=== PATIENT | male | born 1935 | race Caucasian/White ===

== ENCOUNTER → 2016-09-17 | Outpatient (CLI) | payer MEDICARE, BC ==
[~2016-09-17] MED LIST: TERA10CA42 PO
--- NOTE | 2016-09-17 18:04 | RADRPT ---
PROCEDURE: Right knee radiographs. CLINICAL INDICATION: Right knee pain. TECHNIQUE: Two views. Frontal and lateral. COMPARISON: 09/29/2014. FINDINGS: There is no fracture or dislocation. Soft tissue calcifications are present in the suprapatellar bursa and there is fluid in the suprapat ellar bursa. The articular surfaces are intact. There are mild degenerative changes with small osteophytes noted . There is no joint space narrowing. Spurs are noted arising from the superior patella. There is no lytic or blastic lesion. There is no joint effusion. IMPRESSION: 1. Soft tissue calcifications in the suprapatellar bursa. 2. Spurs arising from the superior patella. 3. Mild degenerative change. 4. Otherwise unremarkable images of the right knee. RPTAT: QQ .Lars Molina MD, MD Date Time Electronically viewed and signed by .Lars Molina MD, MD on 09/17/2016 18:03 .R/
== END | disposition home or self-care (01) ==
LOC: HKI 11:18
PROVIDERS: ATTEND Orthopaedic Surgery
DX: Z01.818 Encounter for other preprocedural examination (principal); M66.251 Spontaneous rupture of extensor tendons, right thigh; M25.561 Pain in right knee; Z96.642 Presence of left artificial hip joint; Z96.652 Presence of left artificial knee joint
CPT/HCPCS: 73560; G0463

== ENCOUNTER 2016-09-25 10:29 | Inpatient (IN) | payer MEDICARE, BC ==
[2016-09-25] VITALS (25 sets, daily range): BP systolic 102–154; BP diastolic 45–80; PULSE 73–96; RESP 8–21; Ht 188 cm; Wt 88.7 kg
[~2016-09-25] VITALS: Ht 188 cm; Wt 88.7 kg
[~2016-09-25 10:29] MED LIST changes: +CELECOXIB 400 MG PO X1 DOSE PO ONE; +LACTATED RINGER'S 1,000 ML IV SCH; +PAIN COCKTAIL - VANCOMYCIN IRR ONE; +PREGABALIN 300 MG PO X1 PO ONE; +VANCOMYCIN 1 GM/NS 250 ML X1 BEFORE INCISION IVPB ONE; +oxyCODONE (CR) 10 MG TAB [oxyCONTIN] X1 DOSE PO ONE; +traMADOL 50 MG TAB X 1 DOSE PO ONE
[2016-09-25] MEDS: traMADol 50 MG TAB PO SCH ×2 (12:00→18:16)
[2016-09-25] MEDS ORDERED: AMLO-147 PO (13:09)
[2016-09-25] MEDS ORDERED: AZIL40TA PO (13:10)
[2016-09-25] MEDS ORDERED: AMLO-145 PO (13:11)
[2016-09-25] MEDS ORDERED: SODIUM CL BACTERIOSTATIC 30 ML INJ ONE (14:37)
[2016-09-25] MEDS ORDERED: VANCOMYCIN 1 GM INJ ONE (14:37)
[2016-09-25] MEDS ORDERED: POLYMYXIN B 500000 UNIT INJ ONE (14:37)
[2016-09-25] MEDS ORDERED: BACITRACIN 50000 UNITS INJ ONE (14:47)
--- NOTE | 2016-09-25 14:50 | HPN ---
Date/Time of Note Date/Time of Note DATE: 09/25/16 TIME: 14:50 Interval H&P Admission Note Pt. seen H&P reviewed: No system changes No change from H&P on 09/16/16 by MARIBEL Wilson MD Sep 25, 2016 14:50
[2016-09-25] MEDS ORDERED: LIDOCAINE 2% (SDV) 5 ML INJ ONE (15:13)
[2016-09-25] MEDS ORDERED: FENTAnyl 50 MCG/ML VIAL ONE (15:13)
[2016-09-25] MEDS ORDERED: PROPOFOL 0 ML ONE ×4 (15:13→15:39)
[2016-09-25] MEDS ORDERED: PROPOFOL 60 ML ONE (15:39)
[2016-09-25] MEDS ORDERED: DEXAMETHASONE 4 MG/ML 1 ML INJ ONE (15:48)
[2016-09-25] MEDS ORDERED: ONDANSETRON 4 MG INJ ONE (15:48)
[2016-09-25] MEDS ORDERED: FAMOTIDINE 20 MG INJ ONE (15:48)
[2016-09-25] MEDS ORDERED: NEOSTIGMINE 3 MG/3 ML SYRINGE ONE (15:59)
[2016-09-25] MEDS ORDERED: GLYCOPYRROLATE 0.4 MG INJ ONE (15:59)
[2016-09-25] MEDS ORDERED: POLYMYXIN/BACITRACIN 1L IRRIG ONE (16:02)
[2016-09-25] MEDS ORDERED: SUCCINYLCHOLINE CHLORIDE 100 MG/5 ML SYG IV ONE (16:20)
[2016-09-25] MEDS ORDERED: ROCURONIUM 50 MG INJ ONE (16:20)
[2016-09-25] MEDS ORDERED: EPHEDrine SULFATE 50 MG/5 ML SYG ONE (16:20)
[2016-09-25] MEDS: BUPIVACAINE LIPOSOME/PF 266 MG/20 ML VIAL INFIL SCH (16:43)
[2016-09-25] MEDS ORDERED: ONDANSETRON 4 MG INJ IV PRN ×2 (17:00→17:30)
[2016-09-25] MEDS ORDERED: HYDROmorphONE (0.2 MG/ML) 10ML SYG IV PRN ×2 (17:00)
[2016-09-25] MEDS ORDERED: MEPERIDINE 25 MG INJ IV PRN (17:00)
[2016-09-25] MEDS ORDERED: FENTAnyl 50 MCG/ML VIAL IV PRN (17:00)
[2016-09-25] MEDS ORDERED: PROCHLORPERAZINE 10 MG INJ IV PRN (17:00)
[2016-09-25] MEDS ORDERED: NA PHOSPHATE/BIPHOS 133 ML ENEMA PR PRN (17:30)
[2016-09-25] MEDS ORDERED: MAGNESIUM HYDROXIDE 30ML CUP PO PRN (17:30)
[2016-09-25] MEDS ORDERED: HYDROmorphONE 1 MG/ML SYG IV PRN (17:30)
[2016-09-25] MEDS ORDERED: NACL 0.9% 3 ML SYG IV SCH (17:30)
[2016-09-25] MEDS ORDERED: DIPHENHYDRAMINE 25 MG CAP PO PRN (17:30)
[2016-09-25] MEDS ORDERED: ASPIRIN (EC) 325 MG TAB PO ONE (17:30)
[2016-09-25] MEDS ORDERED: BISACODYL 10 MG SUPP PR PRN (17:30)
[2016-09-25] MEDS ORDERED: oxyCODONE 5 MG TAB PO PRN (17:30)
--- NOTE | 2016-09-25 17:37 | PN ---
Date/Time of Note Date/Time of Note DATE: 09/25/16 TIME: 17:35 Assessment/Plan Lines/Catheters IV Catheter Type (from Nrsg): Peripheral IV Assessment/Plan Assessment/Plan Stable in PACU, s/p right open quad tendon repair -continue vancomycin x 24 hours -cipro 500mg BID for preop UTI -pain meds as needed -ASA/SCDs for DVT prophylaxis -hinged knee brace locked in full extension at all times -OOB with PT as tolerated with hinged knee brace -monitor drain -check AM labs -d/c alvarez in AM Subjective 24 Hr Interval Summary Stable in PACU. Moving all extremities. Denies any pain. Hinged knee brace in good position. Exam/Review of Systems Vital Signs Vitals Vital Signs Date Time Temp Pulse Resp B/P Pulse Ox O2 Delivery O2 Flow Rate FiO2 09/25/16 17:29 98.9 09/25/16 12:52 79 16 119/63 96 Room Air Exam Free Text/Dictation Hemovac: minimal Dressing dry Incision clean, dry, and intact without redness or drainage Thigh soft 5/5 Quadriceps, Tibialis Anterior, EHL, Gastroc, Soleus, Peroneals Normal sensation Palpable DT/PT, CR <2 sec No distal edema FELECIA FOWLER PA-C Sep 25, 2016 17:37
--- NOTE | 2016-09-25 17:43 | OPR ---
Date/Time of Note Date/Time of Note DATE: 09/25/16 TIME: 17:41 Operative Report Free Text/Dictation Dictation # [id number] Procedure Date: Sep 25, 2016 Preoperative Diagnosis Right Quadriceps Tendon Rupture Postoperative Diagnosis Same Operation Performed Right Quadriceps Tendon Rupture Repair Surgeon: MARIBEL SCHAFER MD early childhood assistant: FELECIA FOWLER PA-C Anesthesia: general, spinal Anesthesiologist: WILLIAM DUNCAN MD Tourniquet Time: 42 minutes Estimated Blood Loss: 10 - 50 ml's Specimens None Tubes/Drains Hemovac x 1 Complications: None Pt Condition Post Procedure: stable Disposition: PACU MARIBEL SCHAFER MD Sep 25, 2016 17:42
[2016-09-25 17:46] LABS: HEMATOCRIT 32.5 % (42.0-52.0); HEMOGLOBIN 11.1 g/dl (14.0-18.0)
[2016-09-25 17:56] LABS: POTASSIUM 4.2 mmol/L (3.5-5.1)
[2016-09-25 17:57] LABS: CREATININE 1.03 mg/dl (0.61-1.24)
--- NOTE | 2016-09-25 18:11 | OPR ---
DATE OF OPERATION: 09/25/2016 PREOPERATIVE DIAGNOSIS: Right quadriceps tendon rupture. POSTOPERATIVE DIAGNOSIS: Right quadriceps tendon rupture. OPERATION PERFORMED: Repair, right quadriceps tendon rupture. SURGEON: Maribel Ceballos MD RN QUALITY: FELECIA WARREN. ANESTHESIA: Spinal plus general endotracheal intubation plus periarticular injection. ANESTHESIOLOGIST: Dr. Heydi Cox. TOURNIQUET TIME: 42 minutes. ESTIMATED BLOOD LOSS: 50 mL. INTRAVENOUS FLUIDS: Two liters crystalloid. SPECIMENS: None. DRAINS: Hemovac x1. COMPLICATIONS: None. DISPOSITION: Patient tolerated the procedure well and was taken to the recovery room in stable cond ition. INDICATIONS: The patient is an 81-year-old gentleman who had a fall about 10 days ago and sustained a right distal quadriceps tendon rupture about a fingerbreadth above the superior pole of patella. I felt he would benefit from a repair of the quadriceps tendon. Upon presentation about a week ago , he had marked swelling. I felt the need to wait a week for the swelling to diminish and he now pr esents to have the repair. The risks, benefits, alternatives of the procedure were explained in det ail to the patient. I explained the risks to include but not limited to bleeding and possible need for blood transfusion, infection, pain, stiffness, neurovascular injury, possible numbness, weaknes s and/or paralysis anywhere from the knee down to the toes, re-rupture of the tendon and need for ad ditional future surgery including possible allograft supplementation, wound healing problems, blood clots, pulmonary embolism and anesthetic complications such as heart attack, stroke, GI bleed, pneum onia and/or . Ample time was allowed for the patient to ask questions, all of which were addre ssed and answered. He understood the risks involved and wished to proceed. Informed consent was si gned prior to the procedure. DESCRIPTION OF PROCEDURE: The right knee was initialed with a marking pen [facility] to identify the correct operative site. The patient was then brought to the operating room and transferred from the [facility] to the operating table where he was administered a spinal a nesthetic and then anesthetized and intubated. Torres catheter was placed. Time out was performed t o confirm the right side was the correct operative site. He was given 1 gram of vancomycin within 1 hour prior to the incision. A tourniquet was placed on right proximal thigh. The right lower extr emity was prepped and draped in usual sterile fashion. The right lower extremity was elevated and exsanguinated with the Esmarch tourniquet and the proxima l thigh tourniquet was inflated to 275 mmHg. The knee was flexed. A midline incision was made cent ered over the patella. This was carried down to subcutaneous tissue and fat with sharp dissection. A large pocket of blood was encountered upon incision over the defect. This was evacuated. Medial and lateral flaps were raised. The quadriceps tendon rupture was identified in the tendon had retr acted proximally only about 1 cm. At this point, the wound was irrigated with pulsatile lavage with antibiotic saline. The superior pole of the patella was debrided back to healthy bleeding bone wit h a curet. The quadriceps tendon was debrided of all nonviable tissue. At this point, #2 FiberWire [place] sutures were passed up and down the tendon. Three drill holes were placed in the patella pa rallel to one another. The sutures were then passed through the drill holes and tied down snugly wi th the knee in full extension such that the quadriceps tendon was in intimate contact with the super ior pole of the patella. The overlying retinaculum was repaired with interrupted #1 Vicryls in a fi [id number] fashion. This created a xtaup-dibd-vnve FiberWire repair. At this point, a Hemovac d rain was placed in the deep portion of the wound and brought out the anterolateral thigh. The soft tissues were infiltrated with a mixture of 0.5% bupivacaine, 4 mg Duramorph and 30 mg Toradol, cloni dine, vancomycin and 266 mg of liposomal bupivacaine. The knee was irrigated with antibiotic saline and pulsatile lavage and then closed in layers with 2-0 Stratafix, 3-0 Vicryl and maia on the sk in. The drain was secured with 3-0 nylon. Sponge and needle counts correct at the end of case. Th e wound was covered with silver Mepilex dressing and wrapped with sterile cast padding in a [facility]. The knee was placed in a hinged knee brace, locked in full extension. He was awakened, extu bated, and taken to the recovery room in stable condition. Dictated By: MARIBEL MELO/DC Conf#: [id number] DID#: [id number]
[2016-09-25] MEDS: PANTOPRAZOLE (EC) 40 MG TAB PO SCH (18:15)
[2016-09-25] MEDS: ACETAMINOPHEN 1000MG/100ML IV 100 ML IVPB SCH (18:16)
[2016-09-25] MEDS: CIPROFLOXACIN 500 MG TAB PO SCH (18:47)
--- NOTE | 2016-09-25 19:35 | CONS ---
DATE OF ADMISSION: 09/25/2016 DATE OF CONSULTATION: TYPE OF CONSULTATION: Medical. Thank you, Dr. Schafer, for asking me to participate in medical management of this patient. REASON FOR CONSULTATION: Hypertension, gastroesophageal reflux disease, history of bradycardia. HISTORY OF PRESENT ILLNESS: This 81-year-old man is now in the recovery room after undergoing a rig ht quadriceps tendon repair. The patient tore his right quadriceps tendon while he was in [place] vi siting. The patient stepped off an airplane and had a large step and injured his right leg, tearing the right quadriceps tendon. The patient is awake and alert. He feels well. He denies any chest pain or shortness of breath. The patient was seen preoperatively by his primary care physician, Dr. Danish Gan, and there on the chart from Dr. Conn. PAST MEDICAL HISTORY: Gastroesophageal reflux disease, hypertension, right bundle branch block, his tory of bradycardia. Benign prostatic hypertrophy, erectile dysfunction, herpes zoster. CURRENT MEDICATIONS: Includes the followin. Amlodipine 5 mg a day. 2. Edarbi 40 mg a day. He said that he took his amlodipine this morning. ALLERGIES: THE PATIENT IS ALLERGIC TO AMOXICILLIN. 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 SOCIAL HISTORY: The patient drinks alcohol socially. Former smoker, quit in 1971. PHYSICAL EXAMINATION: GENERAL: At this time reveals a well-developed man in no apparent distress. VITAL SIGNS: Pulse of 96, respirations 19, blood pressure 126/80, O2 saturation 100% on room air. HEENT: Head normocephalic. Eyes: Extraocular muscles intact. NOSE AND MOUTH: Normal. NECK: Supple. No neck vein distention. LUNGS: Clear to auscultation. HEART: Regular rhythm. No murmurs, gallops, or rubs. ABDOMEN: Soft, nontender. No masses or megaly. EXTREMITIES: No peripheral edema. IMPRESSION: This patient is doing well after undergoing a right quadriceps tendon repair. He is in the recovery room. He is awake and alert and answers questions appropriately. He denies any chest pain or shortness of breath. I will manage the patient's hypertension, gastroesophageal reflux dis ease. PLAN: 1. Resume routine medications. 2. Check labs in the morning. 3. Postop quadriceps tendon repair protocol. 4. I will follow the patient along with you. Dictated By: TORRIE WERNER MD ND/NTS Conf#: [id number] DID#: [id number] CC: MARIBEL SCHAFER MD;*EndCC*
[2016-09-25] MEDS ORDERED: TRANEXAMIC ACID 890 MG in SOD CHLORIDE 0.9% 100 ML IVPB ONE ×2 (20:30→23:30)
[2016-09-25] MEDS: AMLODIPINE 5 MG TAB PO SCH (21:00)
[2016-09-25] MEDS ORDERED: VANCOMYCIN 1 GM (PMX) 250 ML IVPB SCH (21:00)
[2016-09-25] MEDS: PREGABALIN 25 MG CAP PO SCH (22:09)
[2016-09-25] MEDS: DOCUSATE SODIUM 100 MG CAP PO SCH (22:09)
[2016-09-25] MEDS: LACTATED RINGER'S 1,000 ML IV SCH (22:11)
[2016-09-26] MEDS: ACETAMINOPHEN 1000MG/100ML IV 100 ML IVPB SCH ×3 (00:11→12:29)
[2016-09-26] MEDS: LACTATED RINGER'S 1,000 ML IV SCH ×3 (00:12→17:20)
[2016-09-26] MEDS: traMADol 50 MG TAB PO SCH ×4 (00:12→17:57)
[2016-09-26 00:32] VITALS: BP 100/55; PULSE 75; RESP 18
[2016-09-26] MEDS: VANCOMYCIN 1 GM (PMX) 250 ML IVPB SCH ×2 (02:46→15:16)
[2016-09-26 05:17] LABS: HEMATOCRIT 28.6 % (42.0-52.0); HEMOGLOBIN 9.7 g/dl (14.0-18.0)
[2016-09-26 05:21] LABS: POTASSIUM 4.7 mmol/L (3.5-5.1)
[2016-09-26 05:24] LABS: CREATININE 1.07 mg/dl (0.61-1.24)
[2016-09-26 05:25] LABS: CALCIUM 8.6 mg/dl (8.4-10.2)
[2016-09-26] MEDS: CIPROFLOXACIN 500 MG TAB PO SCH ×2 (05:37→17:57)
[2016-09-26] MEDS: PANTOPRAZOLE (EC) 40 MG TAB PO SCH ×2 (05:37→17:57)
[2016-09-26 05:56] VITALS: BP 127/71; PULSE 75; RESP 18
[2016-09-26] MEDS: oxyCODONE 5 MG TAB PO PRN (07:15)
[2016-09-26 07:40] LABS: ADD UMIC NO; URINE BILIRUBIN (Dip) NEGATIVE (NEGATIVE); URINE BLOOD (Dip) NEGATIVE (NEGATIVE); URINE COLOR LT. YELLOW (YELLOW); URINE GLUCOSE (Dip) NEGATIVE (NEGATIVE); URINE KETONES (Dip) NEGATIVE (NEGATIVE); URINE LEUKOCYTE ESTERASE (Dip) NEGATIVE (NEGATIVE); URINE NITRITE (Dip) NEGATIVE (NEGATIVE); URINE TOTAL PROTEIN (Dip) NEGATIVE (NEGATIVE); URINE UROBILINOGEN (Dip) 0.2 E.U./dL (0.1-1.0)
[2016-09-26 07:43] VITALS: BP 114/58; RESP 18
[2016-09-26] MEDS: PREGABALIN 25 MG CAP PO SCH ×2 (09:12→20:55)
[2016-09-26] MEDS: ASPIRIN (EC) 325 MG TAB PO SCH ×2 (09:12→20:54)
[2016-09-26] MEDS: DOCUSATE SODIUM 100 MG CAP PO SCH ×2 (09:12→20:54)
[2016-09-26] MEDS: LOSARTAN 50 MG TAB PO SCH (09:15)
[2016-09-26] MEDS: AMLODIPINE 5 MG TAB PO SCH ×2 (09:16→21:00)
--- NOTE | 2016-09-26 09:25 | CONS ---
Date/Time of Note Date/Time of Note DATE: 09/26/16 TIME: 09:19 Assessment/Plan Assessment/Plan Chief Complaint/Hosp Course 1.He is 1 day post op a R quadriceps tendon repair . 2. He is feeling well . 3. continue current medication and PT . 4. he has a history of BPH and usually self catherizes himself 3 time a day . will leave Torres catheter in place today . 5. H/H is low , will check in am . Problems: Consultation Date/Type/Reason Admit Date/Time Sep 25, 2016 at 11:59 Initial Consult Date Type of Consultation: medicine 24 HR Interval Summary Free Text/Dictation He is now 1 day post op a R quadriceps tendon repair . Constitutional: improved, no complaints Exam/Review of Systems Vital Signs Vitals Vital Signs Date Time Temp Pulse Resp B/P Pulse Ox O2 Delivery O2 Flow Rate FiO2 09/26/16 07:43 97.3 66 18 114/58 98 09/26/16 05:56 Room Air Intake and Output 09/25/16 09/25/16 09/26/16 15:00 23:00 07:00 Intake Total 1300 ml 1500 ml Output Total 110 ml 835 ml Balance 1190 ml 665 ml Exam Constitutional: alert, oriented, well developed Psych: nl mood/affect, no complaints Respiratory: clear to auscultation, normal air movement Cardiovascular: regular rate and rhythm Gastrointestinal: soft Musculoskeletal: nl extremities to inspection Results Result Diagram: 09/26/16 0430 09/26/16 0430 Results 24 hrs Laboratory Tests Test 09/25/16 17:40 09/26/16 04:00 09/26/16 04:30 Hemoglobin 11.1 L 9.7 L Hematocrit 32.5 L 28.6 L Sodium Level 140 134 L Potassium Level 4.2 4.7 Chloride Level 105 102 Carbon Dioxide Level 26 27 Anion Gap 13 10 Blood Urea Nitrogen 23 H 24 H Creatinine 1.03 1.07 Glucose Level 116 121 Calcium Level 9.0 8.6 Urine Color LT. YELLOW Urine Clarity CLEAR Urine pH 5.5 Urine Specific [place] 1.025 Urine Ketones NEGATIVE Urine Nitrite NEGATIVE Urine Bilirubin NEGATIVE Urine Urobilinogen 0.2 E.U./dL Urine Leukocyte Esterase NEGATIVE Urine Hemoglobin NEGATIVE Urine Glucose NEGATIVE Urine Total Protein NEGATIVE Medications Medications Current Medications Amlodipine Besylate (Norvasc) 5 mg BID PO Last administered on 09/26/16 09:16 ; Admin Dose 5 MG; Start 09/25/16 at 21:00 Losartan Potassium 50 mg 50 mg DAILY PO Last administered on 09/26/16 09:15; Admin Dose 50 MG; Start 09/26/16 at 09:00 Lactated Ringer's 1,000 ml @ 125 mls/hr Q8H IV Last administered on 09/26/16 00:12; Admin Dose 125 MLS/HR; Start 09/25/16 at 17:20 Acetaminophen (Ofirmev 1000mg/ 100ml Iv) 100 ml @ 400 mls/hr Q6 IVPB Last administered on 09/26/16 05:36; Admin Dose 400 MLS/HR; Start 09/25/16 at 18:00 ; Stop 09/26/16 at 17:59 Tramadol HCl (Ultram) 50 mg Q6 PO Last administered on 09/26/16 05:36; Admin Dose 50 MG; Start 09/25/16 at 12:00; Stop 09/28/16 at 11:59 Oxycodone HCl (Roxicodone) 5 mg Q4H PRN PO PAIN LEVEL 1-3; Start 09/25/16 at 17 :30 Oxycodone HCl (Roxicodone) 10 mg Q4H PRN PO PAIN LEVEL 4-7 Last administered on 09/26/16 07:15; Admin Dose 10 MG; Start 09/25/16 at 17:30 Hydromorphone HCl (Dilaudid) 1 mg Q3H PRN IV PAIN LEVEL 8-10; Start 09/25/16 at 17:30 Ondansetron HCl (Zofran Inj) 4 mg Q6H PRN IV NAUSEA AND/OR VOMITING; Start at 17:30 Bisacodyl (Dulcolax Supp) 10 mg Q12H PRN [place] CONSTIPATION; Start 09/25/16 at 17: 30 Magnesium Hydroxide (Milk Of Mag) 30 ml BID PRN PO CONSTIPATION; Start at 17:30 Sodium Biphosphate/ Sodium Phosphate (Fleet Enema) 133 ml DAILY PRN [place] CONSTIPATION; Start 09/25/16 at 17:30 Docusate Sodium (Colace) 100 mg BID PO Last administered on 09/26/16 09:12; Admin Dose 100 MG; Start 09/25/16 at 21:00 Diphenhydramine HCl (Benadryl) 25 mg Q6H PRN PO PRURITUS; Start 09/25/16 at 17: 30 Aspirin (Ecotrin) 325 mg BID PO Last administered on 09/26/16 09:12; Admin Dose 325 MG; Start 09/26/16 at 09:00 Pantoprazole (Protonix Tab) 40 mg BID@06,18 PO Last administered on 09/26/16 05:37; Admin Dose 40 MG; Start 09/25/16 at 18:00 Pregabalin (Lyrica) 50 mg BID PO Last administered on 09/26/16 09:12; Admin Dose 50 MG; Start 09/25/16 at 21:00 Ciprofloxacin 500 mg 500 mg BID@06,18 PO Last administered on 09/26/16 05:37; Admin Dose 500 MG; Start 09/25/16 at 18:00 Vancomycin HCl (Vancocin) 250 ml @ 125 mls/hr Q12H IVPB Last administered on 02:46; Admin Dose 125 MLS/HR; Start 09/26/16 at 03:00; Stop 09/26/16 at 16:59 TORRIE WERNER MD Sep 26, 2016 09:25
--- NOTE | 2016-09-26 10:45 | PN ---
Date/Time of Note Date/Time of Note DATE: 09/26/16 TIME: 10:43 Assessment/Plan Lines/Catheters IV Catheter Type (from Nrsg): Peripheral IV Alvarez in Place (from Nrsg): Yes Assessment/Plan Assessment/Plan Stable POD #1, s/p right open quad tendon repair -pain meds as needed -ASA/SCDs for DVT prophylaxis -will leave alvarez catheter in place due to prostate issues -continue wearing hinged knee brace locked in extension -OOB with PT as tolerated -monitor drain -check AM labs -will plan to go home upon discharge Subjective 24 Hr Interval Summary No acute overnight events. Denies significant pain. Hinged knee brace in place. Would like to keep in alvarez until tomorrow due to prostate issues. Patient self catheterizes at home. Will plan to go home upon discharge. Exam/Review of Systems Vital Signs Vitals Vital Signs Date Time Temp Pulse Resp B/P Pulse Ox O2 Delivery O2 Flow Rate FiO2 09/26/16 07:43 97.3 66 18 114/58 98 09/26/16 05:56 Room Air Intake and Output 09/25/16 09/25/16 09/26/16 14:59 22:59 06:59 Intake Total 1300 ml 1500 ml Output Total 110 ml 835 ml Balance 1190 ml 665 ml Exam Free Text/Dictation Hemovac: 95cc Dressing dry Incision clean, dry, and intact without redness or drainage Thigh soft 5/5 Quadriceps, Tibialis Anterior, EHL, Gastroc, Soleus, Peroneals Normal sensation Palpable DT/PT, CR <2 sec No distal edema Results Result Diagram: 09/26/1642909/26/16429 FELECIA FOWLER PA-C Sep 26, 2016 10:45
--- NOTE | 2016-09-26 15:26 | PDOCDIS ---
Discharge Instructions DIAGNOSIS Discharge Diagnosis: s/p right open quad tendon repair CONDITION Patient Condition: Good HOME CARE INSTRUCTIONS: Diet Instructions: Regular ACTIVITY: Activity Restrictions: Slowly Increase Activity Rest between Activity Avoid heavy lifting Do not operate Machinery Do not operate Power Tool Avoid Heavy Housework Keep Limb Elevated Bathing Restrictions: ShowerActivity Restrictions Comment: keep knee locked in extension with hinged knee brace at all times FOLLOW UP/APPOINTMENTS Appointments follow up in the office in 1 week FELECIA FOWLER PA-C Sep 26, 2016 15:26
[2016-09-26] MEDS ORDERED: TRAM50TA2 PO (15:28)
[2016-09-26] MEDS ORDERED: HYDR-906 PO (15:28)
[2016-09-26] MEDS ORDERED: ASPI325T32 PO (15:28)
[2016-09-26] MEDS ORDERED: PANT40TA4 PO (15:28)
[2016-09-27] MEDS: traMADol 50 MG TAB PO SCH ×5 (00:12→23:33)
[2016-09-27] MEDS: oxyCODONE 5 MG TAB PO PRN ×2 (00:12→14:22)
[2016-09-27] MEDS: LACTATED RINGER'S 1,000 ML IV SCH ×3 (01:20→16:22)
[2016-09-27 05:06] LABS: HEMOGLOBIN 10.5 g/dl (14.0-18.0)
[2016-09-27 05:17] LABS: POTASSIUM 4.3 mmol/L (3.5-5.1)
[2016-09-27 05:20] LABS: CREATININE 0.9 mg/dl (0.61-1.24)
[2016-09-27 05:21] LABS: CALCIUM 8.9 mg/dl (8.4-10.2)
[2016-09-27] MEDS: PANTOPRAZOLE (EC) 40 MG TAB PO SCH ×2 (05:51→17:28)
[2016-09-27] MEDS: CIPROFLOXACIN 500 MG TAB PO SCH ×2 (05:52→17:27)
[2016-09-27 07:00] VITALS: BP 117/67; RESP 18
[2016-09-27] MEDS: PREGABALIN 25 MG CAP PO SCH ×2 (08:36→20:57)
[2016-09-27] MEDS: AMLODIPINE 5 MG TAB PO SCH ×2 (08:36→20:58)
[2016-09-27] MEDS: ASPIRIN (EC) 325 MG TAB PO SCH ×2 (08:36→20:57)
[2016-09-27] MEDS: DOCUSATE SODIUM 100 MG CAP PO SCH ×2 (08:36→20:57)
[2016-09-27] MEDS: LOSARTAN 50 MG TAB PO SCH (08:37)
--- NOTE | 2016-09-27 10:32 | PN ---
Date/Time of Note Date/Time of Note DATE: 09/27/16 TIME: 10:31 Assessment/Plan Lines/Catheters IV Catheter Type (from Nrsg): Saline Lock Alvarez in Place (from Nrsg): Yes Assessment/Plan Assessment/Plan POD # 2. Stable. -Drain removed -OOB with PT -Hinged brace locked in full extension at all times -Pain meds -ASA/SCDs -D/C alvarez today. Self cath prn. -D/C tomorrow Subjective 24 Hr Interval Summary Resting comfortably. Minimal pain. Walked with PT yesterday. Exam/Review of Systems Vital Signs Vitals Vital Signs Date Time Temp Pulse Resp B/P Pulse Ox O2 Delivery O2 Flow Rate FiO2 09/27/16 07:00 97.8 58 18 117/67 95 09/26/16 05:56 Room Air Intake and Output 09/26/16 09/26/16 09/27/16 15:00 23:00 07:00 Intake Total 3180 ml 150 ml Output Total 5000 ml 3020 ml Balance -1820 ml -2870 ml Exam Free Text/Dictation Hemovac: 20 cc Dressing dry Incision clean, dry, and intact without redness or drainage 5/5 Tibialis Anterior, EHL, Gastroc Soleus, Peroneals Normal sensation Palpable DP/PT, CR < 2 Sec No distal edema Results Result Diagram: 09/27/16 0423 09/27/16 0423 MARIBEL SCHAFER MD Sep 27, 2016 10:32
--- NOTE | 2016-09-27 11:21 | CONS ---
Date/Time of Note Date/Time of Note DATE: 09/27/16 TIME: :17 Consult Date/Type/Reason Admit Date/Time Sep 25, 2016 at 11:59 Initial Consult Date 09/25/2016 Type of Consultation: medicine Reason for Consultation HTN, UTI, BPH Ordering Provider: MARIBEL SCHAFER MD Subjective Patient doing well this am other than feeling constipated. Denies fevers, chills , nausea, vomiting, diarrhea. Pain adequately controlled. Alvarez out, patient self catheterizing. Objective Vital Signs Date Time Temp Pulse Resp B/P Pulse Ox O2 Delivery O2 Flow Rate FiO2 09/27/16 07:00 97.8 58 18 117/67 95 09/26/16 05:56 Room Air Intake and Output 09/26/16 09/26/16 09/27/16 15:00 23:00 07:00 Intake Total 3180 ml 150 ml Output Total 5000 ml 3020 ml Balance -1820 ml -2870 ml Exam GEN-NAD HEENT-MMM, no scleral icterus CV-rrr, nml s1/s2, no m/r/g Pulm-CTAB, no w/r/r Abd-soft, nt, nd Ext-no c/c/e Results/Medications Result Diagram: 09/27/16 0423 09/27/16 0423 Results 24 hrs Laboratory Tests Test 09/27/16 04:23 Hemoglobin 10.5 L Hematocrit 32.0 L Sodium Level 138 Potassium Level 4.3 Chloride Level 106 Carbon Dioxide Level 28 Anion Gap 8 Blood Urea Nitrogen 18 Creatinine 0.90 Glucose Level 94 Calcium Level 8.9 Medications Current Medications Amlodipine Besylate (Norvasc) 5 mg BID PO Last administered on 09/27/16 08:36 ; Admin Dose 5 MG; Start 09/25/16 at 21:00 Losartan Potassium 50 mg 50 mg DAILY PO Last administered on 09/27/16 08:37; Admin Dose 50 MG; Start 09/26/16 at 09:00 Lactated Ringer's (Lr) 1,000 ml @ 125 mls/hr Q8H IV Last administered on 00:12; Admin Dose 125 MLS/HR; Start 09/25/16 at 17:20 Tramadol HCl (Ultram) 50 mg Q6 PO Last administered on 09/27/16 05:52; Admin Dose 50 MG; Start 09/25/16 at 12:00; Stop 09/28/16 at 11:59 Oxycodone HCl (Roxicodone) 5 mg Q4H PRN PO PAIN LEVEL 1-3 Last administered on 09/26/16 19:13; Admin Dose 5 MG; Start 09/25/16 at 17:30 Oxycodone HCl (Roxicodone) 10 mg Q4H PRN PO PAIN LEVEL 4-7 Last administered on 09/27/16 00:12; Admin Dose 10 MG; Start 09/25/16 at 17:30 Hydromorphone HCl (Dilaudid) 1 mg Q3H PRN IV PAIN LEVEL 8-10 Last administered on 09/27/16 02:03; Admin Dose 1 MG; Start 09/25/16 at 17:30 Ondansetron HCl (Zofran Inj) 4 mg Q6H PRN IV NAUSEA AND/OR VOMITING; Start at 17:30 Bisacodyl (Dulcolax Supp) 10 mg Q12H PRN [place] CONSTIPATION; Start 09/25/16 at 17: 30 Magnesium Hydroxide (Milk Of Mag) 30 ml BID PRN PO CONSTIPATION Last administered on 09/27/16 10:38; Admin Dose 30 ML; Start 09/25/16 at 17:30 Sodium Biphosphate/ Sodium Phosphate (Fleet Enema) 133 ml DAILY PRN [place] CONSTIPATION; Start 09/25/16 at 17:30 Docusate Sodium (Colace) 100 mg BID PO Last administered on 09/27/16 08:36; Admin Dose 100 MG; Start 09/25/16 at 21:00 Diphenhydramine HCl (Benadryl) 25 mg Q6H PRN PO PRURITUS; Start 09/25/16 at 17: 30 Aspirin (Ecotrin) 325 mg BID PO Last administered on 09/27/16 08:36; Admin Dose 325 MG; Start 09/26/16 at 09:00 Pantoprazole (Protonix Tab) 40 mg BID@06,18 PO Last administered on 09/27/16 05:51; Admin Dose 40 MG; Start 09/25/16 at 18:00 Pregabalin (Lyrica) 50 mg BID PO Last administered on 09/27/16 08:36; Admin Dose 50 MG; Start 09/25/16 at 21:00 Ciprofloxacin (Cipro) 500 mg BID@,18 PO Last administered on 09/27/16t 05:52 ; Admin Dose 500 MG; Start 09/25/16 at 18:00 Assessment/Plan Chief Complaint/Hosp Course 81 y/o female pmh HTN, 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 Problems: Additional Assessment/Plan Ortho #s/p R quad tendon repair -ASA/SCD for DVT ppx -pain management -PT CV #HTN- -norvasc -losartan ID #UTI -continue ciprofloxacin until 09/28 #BPH -alvarez discontinued -q6 catheterization Dispo-drain removed today. Medically cleared for discharge tomorrow. SHREE SUNSHINE MD Sep 27, 2016 11:21
[2016-09-27 18:00] VITALS: BP 131/89; RESP 20
[2016-09-27 19:55] VITALS: BP 130/82; PULSE 74; RESP 18
[2016-09-28] MEDS: LACTATED RINGER'S 1,000 ML IV SCH ×2 (00:09→09:20)
[2016-09-28 05:13] LABS: POTASSIUM 4.2 mmol/L (3.5-5.1)
[2016-09-28 05:15] LABS: CREATININE 0.89 mg/dl (0.61-1.24); HEMATOCRIT 35.3 % (42.0-52.0); HEMOGLOBIN 11.6 g/dl (14.0-18.0)
[2016-09-28 05:16] LABS: CALCIUM 9.2 mg/dl (8.4-10.2)
[2016-09-28] MEDS: CIPROFLOXACIN 500 MG TAB PO SCH (06:27)
[2016-09-28] MEDS: PANTOPRAZOLE (EC) 40 MG TAB PO SCH (06:27)
[2016-09-28] MEDS: traMADol 50 MG TAB PO SCH (06:27)
[2016-09-28 08:26] VITALS: BP 130/65; RESP 18
[2016-09-28] MEDS: DOCUSATE SODIUM 100 MG CAP PO SCH (08:48)
[2016-09-28] MEDS: PREGABALIN 25 MG CAP PO SCH (08:49)
[2016-09-28] MEDS: ASPIRIN (EC) 325 MG TAB PO SCH (08:49)
[2016-09-28] MEDS: AMLODIPINE 5 MG TAB PO SCH (08:50)
[2016-09-28] MEDS: LOSARTAN 50 MG TAB PO SCH (08:51)
[2016-09-28] MEDS ORDERED: POLYETHYLENE GLYCOL 17 GM PACKET PO ONE (10:00)
--- NOTE | 2016-09-28 10:06 | CONS ---
Date/Time of Note Date/Time of Note DATE: 09/28/16 TIME: 10:02 Consult Date/Type/Reason Admit Date/Time Sep 25, 2016 at 11:59 Initial Consult Date 09/25/2016 Type of Consultation: medicine Reason for Consultation HTN, BPH, UTI Ordering Provider: MARIBEL SCHAFER MD Subjective Patient doing well today. Has not yet had BM. Denies fevers, chills, nausea, vomiting, diarrhea, chest pain, sob, cough, abdominal pain. Objective Vital Signs Date Time Temp Pulse Resp B/P Pulse Ox O2 Delivery O2 Flow Rate FiO2 09/28/16 08:26 97.8 62 18 130/65 97 09/27/16 19:55 Room Air Intake and Output 09/27/16 09/27/16 09/28/16 15:00 23:00 07:00 Intake Total 720 ml 1200 ml Output Total 2000 ml 1000 ml Balance -1280 ml 200 ml Exam Gen-NAD, A&O x4 HEENT-no scleral icterus, mmm CV-rrr, nml s1/s2, no m/r/g Abd-soft, nt, nd, +BS ext-no c/c/e Results/Medications Result Diagram: 09/28/1642609/28/167 Results 24 hrs Laboratory Tests Test 09/28/16 04:27 Hemoglobin 11.6 L Hematocrit 35.3 L Sodium Level 137 Potassium Level 4.2 Chloride Level 101 Carbon Dioxide Level 29 Anion Gap 11 Blood Urea Nitrogen 21 H Creatinine 0.89 Glucose Level 95 Calcium Level 9.2 Medications Current Medications Amlodipine Besylate (Norvasc) 5 mg BID PO Last administered on 09/28/16 08:50 ; Admin Dose 5 MG; Start 09/25/16 at 21:00 Losartan Potassium 50 mg 50 mg DAILY PO Last administered on 09/28/16 08:51; Admin Dose 50 MG; Start 09/26/16 at 09:00 Lactated Ringer's (Lr) 1,000 ml @ 125 mls/hr Q8H IV Last administered on 00:12; Admin Dose 125 MLS/HR; Start 09/25/16 at 17:20 Tramadol HCl (Ultram) 50 mg Q6 PO Last administered on 09/28/16 06:27; Admin Dose 50 MG; Start 09/25/16 at 12:00; Stop 09/28/16 at 11:59 Oxycodone HCl (Roxicodone) 5 mg Q4H PRN PO PAIN LEVEL 1-3 Last administered on 09/26/16 19:13; Admin Dose 5 MG; Start 09/25/16 at 17:30 Oxycodone HCl (Roxicodone) 10 mg Q4H PRN PO PAIN LEVEL 4-7 Last administered on 09/27/16 14:22; Admin Dose 10 MG; Start 09/25/16 at 17:30 Hydromorphone HCl (Dilaudid) 1 mg Q3H PRN IV PAIN LEVEL 8-10 Last administered on 09/27/16 02:03; Admin Dose 1 MG; Start 09/25/16 at 17:30 Ondansetron HCl (Zofran Inj) 4 mg Q6H PRN IV NAUSEA AND/OR VOMITING; Start at 17:30 Bisacodyl (Dulcolax Supp) 10 mg Q12H PRN [place] CONSTIPATION; Start 09/25/16 at 17: 30 Magnesium Hydroxide (Milk Of Mag) 30 ml BID PRN PO CONSTIPATION Last administered on 09/27/16 10:38; Admin Dose 30 ML; Start 09/25/16 at 17:30 Sodium Biphosphate/ Sodium Phosphate (Fleet Enema) 133 ml DAILY PRN [place] CONSTIPATION; Start 09/25/16 at 17:30 Docusate Sodium (Colace) 100 mg BID PO Last administered on 09/28/16 08:48; Admin Dose 100 MG; Start 09/25/16 at 21:00 Diphenhydramine HCl (Benadryl) 25 mg Q6H PRN PO PRURITUS; Start 09/25/16 at 17: 30 Aspirin (Ecotrin) 325 mg BID PO Last administered on 09/28/16 08:49; Admin Dose 325 MG; Start 09/26/16 at 09:00 Pantoprazole (Protonix Tab) 40 mg BID@06,18 PO Last administered on 09/28/16 06:27; Admin Dose 40 MG; Start 09/25/16 at 18:00 Pregabalin (Lyrica) 50 mg BID PO Last administered on 09/28/16 08:49; Admin Dose 50 MG; Start 09/25/16 at 21:00 Ciprofloxacin (Cipro) 500 mg BID@06,18 PO Last administered on 09/28/16t 06:27 ; Admin Dose 500 MG; Start 09/25/16 at 18:00 Assessment/Plan Chief Complaint/Hosp Course 81 y/o female pmh HTN, 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 Problems: Additional Assessment/Plan Ortho #s/p R quad tendon repair -ASA/SCD for DVT ppx -pain management -PT GI #constipation-likely 2/2 immobility and pain meds -minimize pain meds -will dose miralax today as well. -counseled patient extensively on bowel regimen on discharge CV #HTN-well controlled -norvasc -losartan ID #UTI -continue ciprofloxacin today, then dc #BPH -alvarez discontinued -q6 catheterization Dispo-Medically cleared for discharge today. SHREE SUNSHINE MD Sep 28, 2016 10:06
--- NOTE | 2016-09-28 10:29 | PN ---
Date/Time of Note Date/Time of Note DATE: 09/28/16 TIME: 10:27 Assessment/Plan Lines/Catheters IV Catheter Type (from Nrsg): Saline Lock Torres in Place (from Nrsg): Yes Assessment/Plan Assessment/Plan POD # 3. Stable. -D/C to home -Pain meds -Hinged brace locked in full extension at all times -No knee ROM -WBAT right LE with brace on -ASA 325 mg po bid x 4 weeks -F/u with me in 1 week Subjective 24 Hr Interval Summary Comfortable. Ready to go home today. Exam/Review of Systems Vital Signs Vitals Vital Signs Date Time Temp Pulse Resp B/P Pulse Ox O2 Delivery O2 Flow Rate FiO2 09/28/16 08:26 97.8 62 18 130/65 97 09/27/16 19:55 Room Air Intake and Output 09/27/16 09/27/16 09/28/16 15:00 23:00 07:00 Intake Total 720 ml 1200 ml Output Total 2000 ml 1000 ml Balance -1280 ml 200 ml Exam Free Text/Dictation Dressing dry Incision clean, dry, and intact without redness or drainage 5/5 Tibialis Anterior, EHL, Gastroc Soleus, Peroneals Normal sensation Palpable DP/PT, CR < 2 Sec No distal edema Results Result Diagram: 09/28/167 09/28/16426 MARIBEL SCHAFER MD Sep 28, 2016 10:28
--- NOTE | 2016-09-28 18:03 | DS ---
DATE OF ADMISSION: 09/25/2016 DATE OF DISCHARGE: 09/28/2016 ADMITTING DIAGNOSIS: Right knee quadriceps tendon rupture. DISCHARGE DIAGNOSIS: Status post right knee quadriceps tendon rupture repair. HOSPITAL COURSE: The patient was admitted and taken to the operating room where he underwent a righ t knee quadriceps tendon rupture repair. There were no complications. He tolerated the procedure w ell. He was taken to the recovery room in stable condition. He was given routine perioperative int ravenous antibiotics. His pain was controlled with oral pain medications. He had been placed in a hinged knee brace locked in full extension to protect the repair. He was seen by physical therapy a nd educated on gait training and use of a front-wheel walker with the brace locked in full extension . The drain was removed on postoperative day 2 and the incision inspected and noted to be clean, dr y, and intact with no redness or drainage. He remained afebrile, hemodynamically stable, and neurov ascularly intact. By postoperative day 3, he was doing well and ready to be discharged to home. DISCHARGE CONDITION: Good. DISPOSITION: Home. DISCHARGE MEDICATIONS: 1. He will continue with [place] 1 to 2 tabs p.o. q.4 to 6h.p.r.n. pain. 2. Tramadol 1 to 2 tabs p.o. q.4 to 6h. p.r.n. mild pain. 3. He will take enteric-coated aspirin 325 mg twice daily for DVT prophylaxis. 4. For the remainder of the medications, please refer to the medication reconciliation form. DISCHARGE INSTRUCTIONS: He should keep the hinged brace locked in full extension on the knee at all times. There is to be no bending of the knee. He may be weightbearing as tolerated on the right l ower extremity with a walker, so long as he has the hinged knee brace on locked in full extension. The incision should be kept dry. FOLLOWUP: He will follow up with me in the office in 1 week. Dictated By: MARIBEL MELO/DC Conf#: [id number] DID#: [id number]
== END 2016-09-28 13:10 | disposition home or self-care (01) | DRG 501 ==
LOC: REC 11:59 → MS1 21:26
PROVIDERS: ADMIT Orthopaedic Surgery; ATTEND Orthopaedic Surgery
PROC: 0LML0ZZ Reattachment of Right Upper Leg Tendon, Open Approach (ICD-10-PCS; principal; 2016-09-25 14:30)
DX: M66.251 Spontaneous rupture of extensor tendons, right thigh (principal); N39.0 Urinary tract infection, site not specified; I10 Essential (primary) hypertension; K21.9 Gastro-esophageal reflux disease without esophagitis; S83.92XA Sprain of unspecified site of left knee, initial encounter; X50.9XXA Other and unspecified overexertion or strenuous movements or postures, initial encounter; Y92.813 Airplane as the place of occurrence of the external cause; Z96.642 Presence of left artificial hip joint; Z96.652 Presence of left artificial knee joint; N40.0 Benign prostatic hyperplasia without lower urinary tract symptoms; K59.00 Constipation, unspecified
CPT/HCPCS: 80048; 81003; 85014; 85018; 87081; 87086; 97116; 97162; 97530; C9290; J0131; J0171; J0330; J0735; J1100; J1170; J1885; J2274; J2405; J2710; J3010; J3370; J7120

== ENCOUNTER → 2016-10-03 | Outpatient (CLI) | payer MEDICARE, BC ==
[~2016-10-03] MED LIST changes: +AMLO-145 PO; +ASPI325T32 PO; +AZIL40TA PO; -CELECOXIB 400 MG PO X1 DOSE PO ONE; +HYDR-906 PO; -LACTATED RINGER'S 1,000 ML IV SCH; -PAIN COCKTAIL - VANCOMYCIN IRR ONE; +PANT40TA4 PO; -PREGABALIN 300 MG PO X1 PO ONE; -TERA10CA42 PO; +TRAM50TA2 PO; -VANCOMYCIN 1 GM/NS 250 ML X1 BEFORE INCISION IVPB ONE; -oxyCODONE (CR) 10 MG TAB [oxyCONTIN] X1 DOSE PO ONE; -traMADOL 50 MG TAB X 1 DOSE PO ONE
--- NOTE | 2016-10-03 16:31 | HKNOTE ---
DATE OF SERVICE: 10/03/2016 INTERVAL HISTORY: The patient presents today for his first postoperative evaluation. He is approximately 1 week status post right open quad tendon repair. He is doing well overall. He has been doing home health physical therapy and saw some redness around the incision and they wanted him to come in for evaluation. The patient denies any fevers or chills. Denies any pus or drainage. He has been wearing a knee immobilizer locked in extension at all times. He presents today for his first postoperative evaluation. PHYSICAL EXAMINATION: Today, he is alert and oriented x4 in no acute distress. He is wearing a hinged knee brace locked in extension and ambulating with a crutch. Examination of the incision demonstrates it to be clean, dry and intact. It is well healing. There is some mild ecchymosis, but no erythema or warmth noted. There is no pus or drainage noted. Straight leg raise is intact with the knee immobilizer on. Compartments are otherwise soft. He is neurovascularly intact distally. ASSESSMENT: One week status post right open quadriceps tendon repair. PLAN: The maia were removed today and Steri-Strips were applied. The redness that he has is likely secondary to some postoperative ecchymosis. There are no bailee signs of infection at this time. The incision is clean, dry and intact. There is no drainage, redness or warmth noted. He is to continue ambulating with the knee locked in full extension at all times. We will see him back in 2 weeks for reevaluation. He is to call the office at any time if he has any concerns. Dictated By: FELECIA WARREN for MARIBEL CAREY/DC Conf#: [id number] DID#: [id number] MTDD
== END | disposition home or self-care (01) ==
LOC: HKI 14:23
PROVIDERS: ATTEND Orthopaedic Surgery
DX: Z47.89 Encounter for other orthopedic aftercare (principal); S76.111D Strain of right quadriceps muscle, fascia and tendon, subsequent encounter

== ENCOUNTER → 2016-10-17 | Outpatient (CLI) | payer MEDICARE, BC | END | disposition home or self-care (01) | LOC: HKI 13:51 | PROVIDERS: ATTEND Orthopaedic Surgery | DX: S76.191D Other specified injury of right quadriceps muscle, fascia and tendon, subsequent encounter (principal); W01.0XXD Fall on same level from slipping, tripping and stumbling without subsequent striking against object, subsequent encounter; M25.561 Pain in right knee ==

== ENCOUNTER → 2016-11-05 | Outpatient (CLI) | payer MEDICARE, BC | END | disposition home or self-care (01) | LOC: HKI 10:21 | PROVIDERS: ATTEND Orthopaedic Surgery | DX: M25.561 Pain in right knee (principal); M66.251 Spontaneous rupture of extensor tendons, right thigh ==

== ENCOUNTER → 2016-11-19 | Outpatient (CLI) | payer MEDICARE, BC | END | disposition home or self-care (01) | LOC: HKI 09:29 | PROVIDERS: ATTEND Orthopaedic Surgery | DX: Z47.89 Encounter for other orthopedic aftercare (principal) ==

== ENCOUNTER → 2017-02-02 | Outpatient (CLI) | payer MEDICARE, BC ==
--- NOTE | 2017-02-02 14:17 | RADRPT ---
PROCEDURE: Right knee radiographs. CLINICAL INDICATION: Right knee pain. TECHNIQUE: Two views. Frontal and lateral. COMPARISON: 09/17/2016. FINDINGS: There is no fracture or dislocation. Soft tissue calcifications are present in the suprapatellar bursa and there is fluid in the suprapat ellar bursa. The articular surfaces are intact. There are mild degenerative changes with small osteophytes noted. There is no joint space narrowing. Spurs are noted arising from the superior patella. There is no lytic or blastic lesion. There is no joint effusion IMPRESSION: 1. Soft tissue calcifications in the suprapatellar bursa. 2. Spurs arising from the superior patella. 3. Mild degenerative change. 4. Otherwise unremarkable images of the right knee. 5. No change from 09/17/2016. RPTAT: QQ .Lars Molina MD, Date Time Electronically viewed and signed by .Lars Molina MD, on 02/02/2017 14:17 .R/
== END | disposition home or self-care (01) ==
LOC: HKI 11:03
PROVIDERS: ATTEND Orthopaedic Surgery
DX: Z47.89 Encounter for other orthopedic aftercare (principal); M66.251 Spontaneous rupture of extensor tendons, right thigh; Z96.642 Presence of left artificial hip joint; Z96.652 Presence of left artificial knee joint